=== PATIENT | female | born 1995 | race Caucasian/White ===

== ENCOUNTER 2019-06-10 00:18 | Emergency (ER) | payer BC ==
--- NOTE | 2019-06-10 01:25 | ED ---
Lower Extremity - HPI Summary HPI Summary: 24-year-old female presents with right foot injury today. States that she got up off the cough and her right foot was numb and she ended up stumbling and hurting the right foot twice. She has not fractured this foot before. Pain is greatest over the fifth metatarsal. Pain does radiate up to her lateral ankle. No previous fracture to this foot. No numbness or tingling. Has no medical conditions. - History of Current Complaint Chief Complaint: EDExtremityLower Stated Complaint: FOOT INJURY PER PT Time Seen by Provider: 06/10/19 00:54 Pain Intensity: 7 - Allergies/Home Medications Allergies/Adverse Reactions: Allergies Allergy/AdvReac Type Severity Reaction Status Date / Time No Known Allergies Allergy Verified 06/10/19 00:22 PMH/Surg Hx/FS Hx/Imm Hx Endocrine/Hematology History: Denies: Hx Anticoagulant Therapy Respiratory History: Denies: Hx Asthma Infectious Disease History: No Infectious Disease History: Denies: Traveled Outside the [place] in Last 30 Days - Family History Known Family History: Positive: Non-Contributory - Social History Alcohol Use: Occasionally Smoking Status (MU): Never Smoked Tobacco Review of Systems Negative: Fever Negative: Chest Pain Negative: Shortness Of Breath Positive: Myalgia - right foot pain All Other Systems Reviewed And Are Negative: Yes Physical Exam Triage Information Reviewed: Yes Vital Signs On Initial Exam: Initial Vitals Temp Pulse Resp BP Pulse Ox 99.3 F 154 15 154/97 98 06/10/19 00:21 06/10/19 00:21 06/10/19 00:21 06/10/19 00:21 06/10/19 00:21 Vital Signs Reviewed: Yes Appearance: Positive: Well-Appearing Skin: Positive: Warm, Dry Head/Face: Positive: Normal Head/Face Inspection Eyes: Positive: Normal, Conjunctiva Clear ENT: Positive: Pharynx normal Respiratory/Lung Sounds: Positive: Clear to Auscultation, Breath Sounds Present Cardiovascular: Positive: Normal, RRR Musculoskeletal: Positive: Limited @ - right foot, Other - tenderness with edema at right 5th metatarsal, tenderness lateral malleolus, good pulses, sensation grossly intact Neurological: Positive: Normal Psychiatric: Positive: Normal Procedures - Sedation Patient Received Moderate/Deep Sedation with Procedure: No Diagnostics - Vital Signs Vital Signs Temp Pulse Resp BP Pulse Ox 06/10/19 00:21 99.3 F 154 15 154/97 98 - Laboratory Lab Statement: Any lab studies that have been ordered have been reviewed, and results considered in the medical decision making process. - Radiology foot, ankle Radiology Interpretation Completed By: ED Physician Summary of Radiographic Findings: 5th metatarsal fracture Lower Extremity Course/Dx - Course Course Of Treatment: 24-year-old female presents with right foot injury today. States that she got up off the cough and her right foot was numb and she ended up stumbling and hurting the right foot twice. She has not fractured this foot before. Pain is greatest over the fifth metatarsal. Pain does radiate up to her lateral ankle. No previous fracture to this foot. No numbness or tingling. Has no medical conditions. On exam has edema and pain over the fifth metatarsal. has pain over lateral malleolus. X-ray shows potential fifth metatarsal fracture. Gave cam boot and crutches. Told to follow with orthopedic. Patient understands and agrees with the plan. - Diagnoses Differential Diagnosis/HQI/PQRI: Positive: Contusion, Fracture (Closed), Sprain Provider Diagnoses: Closed fracture of 5th metacarpal Discharge ED - Sign-Out/Discharge Documenting (check all that apply): Patient Departure - Discharge Plan Condition: Good Disposition: HOME Patient Education Materials: Foot Fracture in Adults (ED) Referrals: Maxx Adkins MD [Medical Doctor] - Additional Instructions: Use crutches and stay nonweight bearing use boot on area Call ortho office tomorrow to set up appointment for follow up Use ibuprofen or tyenlol for pain every 6 hours Ice, elevate Return to ED if develop any new or worsening symptoms - Billing Disposition and Condition Condition: GOOD Disposition: Home
== END 2019-06-10 02:02 | disposition home or self-care (01) ==
LOC: ED 00:18
DX: S62.306A Unspecified fracture of fifth metacarpal bone, right hand, initial encounter for closed fracture (principal); W18.40XA Slipping, tripping and stumbling without falling, unspecified, initial encounter; Y92.9 Unspecified place or not applicable
CPT/HCPCS: 99282